=== PATIENT | female | born 1975 | race Caucasian/White ===

== ENCOUNTER 2018-01-10 06:04 | Inpatient (IN) | payer OTHER ==
[~2018-01-10] VITALS: Ht 157.5 cm; Wt 114.3 kg
[~2018-01-10 06:04] MED LIST: CEFUROXIME500 MG PO; CITRANATAL HAR1 EACH PO; FERRALET 90 TA1 EACH PO; PANTOPRAZOLE SO40 M1 PO; PROAIR HFA8.5 GM INH
[2018-01-10 08:58] VITALS: BP 123/73
[2018-01-11 07:53] LABS: ABSOLUTE BASOPHIL COUNT 0 /CUMM (0.0-0.2); ABSOLUTE EOSINOPHIL COUNT 0.1 /CUMM (0.0-0.7); ABSOLUTE GRANULOCYTE CT 6.4 /CUMM (1.4-6.5); ABSOLUTE LYMPH COUNT 2.6 /CUMM (1.2-3.4); ABSOLUTE MONOCYTE COUNT 0.6 /CUMM (0.10-0.60); BASOPHIL % 0.3 % (0.0-2.0); EOSINOPHIL % 1.2 % (0-5); GRANULOCYTE % 65.4 % (42.2-75.2); MEAN CORPUSCULAR VOLUME 81.7 FL (81.0-99.0); MEAN PLATELET VOLUME 9.1 FL (7.4-10.4); PLATELET COUNT 174 /CUMM (130-400); RBC DISTRIBUTION WIDTH 14.9 % (11.5-14.5); RED BLOOD CELL CT 3.32 /CUMM (4.20-5.40); WHITE BLOOD CELL COUNT 9.8 /CUMM (4.8-10.8)
--- NOTE | 2018-01-11 08:03 | Operative Report ---
Operative/Inv Procedure Report Surgery Date: 01/10/18 Name of Procedure: Primary low flap transverse section via Pfannenstiel skin incision Pre-Operative Diagnosis: Uncontrolled diabetes 37 weeks morbid obesity patient choice Post-Operative Diagnosis: Same Estimated Blood Loss: 600 Surgeon/Goodwill Ambassador: Asael ROJAS,Nanette Curiel Anesthesia: block Operative/Procedure Note Note: Vision was taken the operating room placed supine position after adequate induction of anesthesia and checking for on spinal narcotic a timeout was performed the abdomen was prepped and draped so fashion on through Pfannenstiel skin incision 2 fingerbreadths of symptoms pubis in midline the skin was cut was carried down to rectus fascia which was cut in curvilinear fashion I direction peritoneal cavity was entered high into the abdomen on the low bladed Allie was placed and lower and incision the uterus was attempted the peritoneum and cut and a bladder flap was developed bluntly in the lower uterine segment on after the bladder blade had been placed to protect the bladder brought uterus was nicked entered with the back of knife dissected bluntly as well as sharply on since removed from the field patient tolerated that well on the infant was delivered over the abdominal wall the cord was reducible twice around the neck patient tolerated that well cord was clamped cut and was handed to pediatricians waiting delivering to aid in resuscitation placenta was delivered manually noted to be intact was wiped clean with 2 wet dry last insurance free of adherent membranes was oversewn running locked suture was indicated interrupted [id number] is well emesis was apparent at this point the uses turned to abdominal cavity I interrupted [id number] were used for hemostasis at this point the M was irrigated copious amounts warm sounds are clear peritoneum was reapproximated 0 fascia was reapproximated using 2 continuous sutures of #1 skin was reapproximated iris at the end the case counts correct urine was clear mother and transferred recovery room awake alert counts correct thank you
[2018-01-11 08:07] LABS: HEMATOCRIT 27.1 % (37-47)
--- NOTE | 2018-01-11 09:26 | PN- Post Delivery/GYN ---
Subjective Subjective: No complaints Objective Last 24 Hrs of Vital Signs/I&O No complaints Physical Exam: Obese white female eating breakfast HEENT anicteric Lungs clear Abdomen soft nontender Incision clean dry and intact Extremities negative edema negative Homans Fundus firm lochia minimal Assessment/Plan Assessment/Plan Assessment status post section status post gestational diabetes Plan possible discharge in a.m. continue postop care
[2018-01-12] MEDS ORDERED: PERCOCET 5-3251 EACH PO (05:38)
[2018-01-12] MEDS ORDERED: IBUPROFEN800 M1 PO (05:38)
--- NOTE | 2018-01-12 11:46 | Cons- Psychiatry ---
Psychiatric Consult Date of Consult: 01/12/18 Reason for Consult: emotional outburst before d/c Allergies: Coded Allergies: Sulfa (Sulfonamide Antibiotics) (RASH 10/05/17) latex (RASH 10/05/17) Past History Past Medical History Neurological: NONE EENT: NONE Cardiovascular: NONE Respiratory: NONE Gastrointestinal: GERD Hepatic: NONE Renal: NONE Musculoskeletal: NONE Psychiatric: NONE Endocrine: NONE Blood Disorders: NONE Cancer(s): NONE PREP PERSON/Reproductive: NONE Past Surgical History Surgical History: non-contributory Assessment/Plan Impression: Pt is a 42 y/o MWM with a past history of borderline personality disorder who is here with her first baby. She delivered by and her son is currently at [facility]. Pt has been displaying signs that she is not ready to go home and care for her child. This am she broke down crying feeling overwhelmed. I came to see pt she was in shower. There are bhupinder bears on her bed which have diapers on them. I waited for her to get dressed when I went in she told me she was not ready and was upset with her for leaving which she repeated several times. She asked me to come back which I did and she still was not dressed. She asked for nursing to dry her incision. She became upset stating she could never be ready for 11:00. Nursing spoke with her and when I came back she still was not ready. I had to insist we talk with which she complied. Pt is concerned about caring for the baby given her lack of experience. She is concerned her won't help her. She denies recent depressive symptoms. She does not feel she would ever hurt the baby or herself. "I just want to care for him properly." She feels she is not ready to leave but she is able to understand she needs to get to the baby for bonding. There is no AH/VH now or in the past. PPHx: Recently dignosed borderline. Tried antipsychotics and wellbutrin in past with no effect. Was in therapy cannot see her therapist because she does not take [employer]. She had a rough childhood. Mother was caring. She was bullied. FH: Uncle institutionalized. Feels mother was impaired though she unsure of diagnosis. SH: Lives in [place] with her . No children. 1 stepchild she does not see. Current Medications Sig/Darian Start time Last Medication Dose Route Stop Time Status Admin Bisacodyl 10 MG DAILY NEEDED PRN 01/10 0845 AC KY Diphenhydramine HCl 25 MG Q6P PRN 01/10 0750 AC 01/11 IV 0303 Docusate Sodium 100 MG .STK-MED ONE 01/12 0214 DC PO 01/12 0215 Docusate Sodium 100 MG AT BEDTIME NEED.. 01/10 0845 AC 01/12 PO 0224 Enoxaparin Sodium 40 MG 2100 01/10 2100 AC 01/11 SC 211 Hydroxyzine HCl 50 MG AT BEDTIME NEED.. 01/11 0000 AC 01/11 PO 2328 Ibuprofen 800 MG .STK-MED ONE 01/12 0227 DC PO 01/12 0228 Ibuprofen 800 MG .STK-MED ONE 01/11 1842 DC PO 01/11 184 Ibuprofen 800 MG .STK-MED ONE 01/11 1250 DC PO 01/11 1251 Ibuprofen 800 MG Q6P PRN 01/10 0845 AC 01/12 PO 0819 Lactated Ringer's 1,000 ML Q8H 01/10 0845 AC IV Lanolin 1 TBE .STK-MED ONE 01/11 2003 DC TOP 01/12 2004 Magnesium Hydroxide 30 ML DAILY NEEDED PRN 01/10 0845 AC PO Metoclopramide HCl 10 MG Q6P PRN 01/10 0750 AC IV Oxycodone/ 1 TAB Q4P PRN 01/10 0845 AC 01/12 Acetaminophen PO 0819 Oxycodone/ 2 TAB Q4P PRN 01/10 0845 AC Acetaminophen PO Senna 187 MG .STK-MED ONE 01/12 0215 DC PO 01/12 0216 Senna 187 MG AT BEDTIME NEED.. 01/10 0845 AC PO Tetanus/Reduced 0.5 ML ONCE ONE 01/12 0745 DC 01/12 Diphtheria/Acell IM 01/12 0746 0825 Pertussis MSE: Pt is in towel, hair wet from shower, in NAD. She is alert and oriented. There are no movement abnormalities. Her speech is clear with normal rate and volume. Her mood is upset but she feels this is situational. Her affect is intermittently tearful with broad range. Her thought process is somewhat perseverative over her 's needing to leave this am, no thought disorder. Her thought content reveals no delusions SI or HI. She displays dependency and regression. Her insight is improved after discussion. Her judgment is good. A/ 42 y/o MWF with hx borderline personality who is currently overwhelmed and anxious re: taking care of baby. She is regressing but feels she will care for her child and herself. P/ -Discussed getting sleep as much as possible for her mental health with pt and her -Discussed getting services as needed offered to her by [facility] -Discussed sleep safety -She is amenable to outpatient psychiatry monitoring but does not want psychotropics at this time; November 20 at 10:45 am, [address] -I left information for community based therapy for the patient There are no safety issues per pt and her ; she is safe to discharge. JScruggsMD #[id number]
== END 2018-01-12 12:37 | DRG 540 ==
LOC: GNO 06:04
PROVIDERS: Specialist
PROC: 10D00Z1 Extraction of Products of Conception, Low, Open Approach (ICD-10-PCS; principal; 2018-01-10)
DX: O24.424 Gestational diabetes mellitus in childbirth, insulin controlled (principal); O13.4 Gestational [pregnancy-induced] hypertension without significant proteinuria, complicating childbirth; O99.214 Obesity complicating childbirth; E66.01 Morbid (severe) obesity due to excess calories; O99.344 Other mental disorders complicating childbirth; Z3A.37 37 weeks gestation of pregnancy; Z37.0 Single live birth; F60.3 Borderline personality disorder; Z88.2 Allergy status to sulfonamides; Z91.040 Latex allergy status
CPT/HCPCS: GNOS; 36415; 59025; 81001; 82570; 84112; 87086; 96361; 96374; G0463; J0690; J0696; J1200; J1650; J1885; J7120

== ENCOUNTER 2018-03-09 05:11 | Emergency (ER) | payer OTHER ==
[~2018-03-09] VITALS: Ht 157.5 cm; Wt 101.6 kg
[~2018-03-09 05:11] MED LIST changes: +IBUPROFEN800 M1 PO; +PERCOCET 5-3251 EACH PO
[2018-03-09 05:19] VITALS: BP 144/79
--- NOTE | 2018-03-09 05:23 | ED GENERAL ADULT ---
History of Present Illness General Chief Complaint: General Adult Stated Complaint: " I HAVE A COLD, FEVER, @HOME TEMP 100.3" Source: patient Exam Limitations: no limitations Vital Signs & Intake/Output Vital Signs & Intake/Output Vital Signs Date Time Temp Pulse Resp B/P B/P Pulse O2 O2 Flow FiO2 Mean Ox Delivery Rate 03/09 05 98.8 108 20 144/79 99 Room Air Allergies Coded Allergies: Sulfa (Sulfonamide Antibiotics) (RASH 10/05/17) latex (RASH 10/05/17) Reconcile Medications Albuterol Sulfate (Proair Hfa) 90 MCG HFA.AER.AD 2 PUF INH Q4-6 PRN PRN COUGH/ WHEEZE Amoxicillin/Potassium Clav (Augmentin 875-125 Tablet) 875 MG-125 MG TABLET 1 TAB PO BID BRONCHITIS Benzonatate (Tessalon Perle) 100 MG CAPSULE 1 CAP PO TID PRN COUGH Ibuprofen 600 MG TABLET 1 TAB PO TID PRN FEEVER with food Ibuprofen 800 MG TABLET 800 MG PO Q6P PRN UTERINE CRAMPING Iron Carb,Gl/FA/B12/C/Docusate (Ferralet 90 Tablet) 90 MG-1 MG-12 MCG-120 MG-50 MG TABLET 1 TAB PO DAILY SUPPLEMENT (Reported) Loratadine (Claritin) 10 MG TABLET 1 TAB PO DAILY ALLERGIES Oxycodone HCl/Acetaminophen (Percocet 5-325 MG Tablet) 5 MG-325 MG TABLET 1 TAB PO Q4P PRN PAIN SCALE 4-6 (MODERATE) Pnv59/Iron,Carb&Fum/FA/Dss/Dha (Citranatal [place]on Capsule) 27 MG IRON-1 MG-50 MG-260 MG CAPSULE 1 CAP PO DAILY (Reported) Prednisolone 15 MG/5 ML SOLUTION 10 ML PO QDAY ALLERGIES Triage Note: PT COMING IN FROM HOME C/O CONGESTION AND PRODUCTIVE COUGH SINCE WEDNESDAY. PT STATES SHE IS COUGHING UP YELLOW/GREEN SPUTUM. PT HAD SORE THROAT ON WEDNESDAY BUT DENIES A SORE THROAT AT THIS TIME. PT STATES "I FEEL TIRED." PT DENIES ANY OTHER COMPLAINTS. SKIN WARM/DRY. RESPIRATIONS NON-LABORED. Triage Nurses Notes Reviewed? yes Onset: Gradual Duration: day(s): Timing: recent history Injury Environment: home Severity: mild Modifying Factors: Improves With: rest. Associated Symptoms: cough HPI: 42 yo woman h/o pre-eclampsia, delivered 2 months ago, presents with 2-3 days of cough, runny nose, fever 100.3, productive sputum. She is otherwise well, without dyspnea, abdominal pain, dysuria. Past History Travel History Traveled to [place] past 21 day No Medical History Any Pertinent Medical History? see below for history Neurological: NONE EENT: NONE Cardiovascular: NONE Respiratory: NONE Gastrointestinal: GERD Hepatic: NONE Renal: NONE Musculoskeletal: NONE Psychiatric: NONE Endocrine: NONE Blood Disorders: NONE Cancer(s): NONE FABRIC STRETCHER/Reproductive: NONE Surgical History Surgical History: non-contributory Psychosocial History What is your primary language Ken[place] Family History Hx Contributory? No Review of Systems Review of Systems Constitutional: Denies: see HPI. Physical Exam Physical Exam General Appearance: well developed/nourished Ears, Nose, Throat: nasal congestion, pharyngeal erythema Comments: Review of Systems - except as otherwise noted in HPI Review of Systems Constitutional:no symptoms. EENTM:no symptoms. Respiratory:no symptoms. Cardiovascular:no symptoms. GI:no symptoms. Genitourinary:no symptoms. Musculoskeletal:no symptoms. Skin:no symptoms. Neurological/Psychological:no symptoms. Hematologic/Endocrine:no symptoms. Immunologic/Allergic:no symptoms. All Other Systems: Reviewed and Negative Physical Exam Physical Exam General Appearance: well developed/nourished, no apparent distress Head: atraumatic, normal appearance Eyes: Bilateral: normal appearance. Ears, Nose, Throat: normal pharynx, normal ENT inspection Neck: normal inspection, supple, full range of motion Respiratory: coarse breath sounds bilaterally, chest non-tender, no respiratory distress, quiet respiration, lungs clear Cardiovascular: regular rate/rhythm Gastrointestinal: normal bowel sounds, soft, non-tender, no organomegaly Back: normal inspection, normal range of motion Extremities: normal inspection, normal capillary refill, normal range of motion, no edema Neurologic/Psych: no motor/sensory deficits, awake, alert, oriented x 3 Skin: intact, normal color, warm/dry Core Measures ACS in differential dx? No CVA/TIA Diagnosis: No Sepsis Present: No Sepsis Focused Exam Completed? No Progress Differential Diagnoses I considered the following diagnoses in my evaluation of the patient: viral vs bacterial uri vs other. Plan of Care: see below Initial ED EKG: none Departure Departure Disposition: HOME OR SELF CARE Condition: Stable Clinical Impression Primary Impression: Bronchitis Referrals: Patient Has No Primary Care Dr (PCP/Family) Departure Forms: Customer Survey General Discharge Information Prescriptions: Current Visit Scripts Prednisolone 10 ML PO QDAY #50 ML Benzonatate (Tessalon Perle) 1 CAP PO TID PRN COUGH #30 CAP Albuterol Sulfate (Proair Hfa) 2 PUF INH Q4-6 PRN PRN COUGH/WHEEZE #1 INHAL Loratadine (Claritin) 1 TAB PO DAILY #10 TAB Amoxicillin/Potassium Clav (Augmentin 875-125 Tablet) 1 TAB PO BID #14 TAB Ibuprofen 1 TAB PO TID PRN FEEVER #10 TAB with food Comments given productive sputum and physical findings, will rx with steroids and abx... close follow up advised. Critical Care Note Critical Care Note Critical Care Time: non-applicable
[2018-03-09] MEDS ORDERED: TESSALON PERLE100 M1 PO (05:39)
[2018-03-09] MEDS ORDERED: CLARITIN10 M1 PO (05:39)
[2018-03-09] MEDS ORDERED: AUGMENTIN 875-1 EACH PO (05:39)
[2018-03-09] MEDS ORDERED: PROAIR HFA8.5 GM INH (05:39)
[2018-03-09] MEDS ORDERED: PREDNISOLO15 MG/5 M4 PO (05:39)
[2018-03-09] MEDS ORDERED: IBUPROFEN600 M1 PO (05:44)
== END 2018-03-09 05:45 ==
LOC: ERH 05:11
DX: J40 Bronchitis, not specified as acute or chronic (principal)